=== PATIENT | male | born 1990 | race Caucasian/White ===

== ENCOUNTER 2019-10-13 11:47 | Emergency (ER) | payer SELFPAY ==
[~2019-10-13] VITALS: Ht 188 cm; Wt 82.0 kg
[2019-10-13 12:35] VITALS: BP 134/65
[2019-10-13] MEDS ORDERED: AMOX500C PO (12:42)
--- NOTE | 2019-10-13 12:43 | PHYS DOC ---
General Adult EDM: Chief Complaint: SORE THROAT HPI: HPI: Patient is a 29 year old male who presents with sore throat since Friday. Patient reports that he felt hot but did not have a thermometer to check his temperature. Patient has been taking leftover amoxicillin and 800mg ibuprofen at home. Patient reports that he has been painful to drink a lot of fluids because of the throat pain and is becoming nauseous and he said he vomited. Rating his pain a 10 out of 10. States he has been using Chloraseptic [place] also at home. (CHRIS WATTS APRN) Review of Systems: Review of Systems: HENT: Denies nasal congestion. +sore throat. [] (CHRIS WATTS HEAD SAWYER) Heart Score: Risk Factors: Risk Factors: DM, Current or recent (<one month) smoker, HTN, HLP, family history of CAD, obesity. Risk Scores: Score 0 - 3: 2.5% MACE over next 6 weeks - Discharge Home Score 4 - 6: 20.3% MACE over next 6 weeks - Admit for Clinical Observation Score 7 - 10: 72.7% MACE over next 6 weeks - Early Invasive Strategies (CHRIS WATTS APRN) Physical Exam: PE: Constitutional: Well developed, well nourished, no acute distress, non-toxic appearance. [] HENT: Normocephalic, atraumatic, bilateral external ears normal, oropharynx moist, no oral exudates, nose normal. Bilateral tonsils 2+ swelling with exudates. [] Eyes: PERRLA, EOMI, conjunctiva normal, no discharge. [] Neck: Normal range of motion, no tenderness, supple, no stridor. [] Cardiovascular:Heart rate regular rhythm, no murmur [] Lungs & Thorax: Bilateral breath sounds clear to auscultation [] Abdomen: Bowel sounds normal, soft, no tenderness, no masses, no pulsatile mas ses. [] Skin: Warm, dry, no erythema, no rash. [] Back: No tenderness, no CVA tenderness. [] Extremities: No tenderness, no cyanosis, no clubbing, ROM intact, no edema. [] Neurologic: Alert and oriented X 3, normal motor function, normal sensory function, no focal deficits noted. [] Psychologic: Affect normal, judgement normal, mood normal. [] (CHRIS WATTS APRN) EKG: EKG: [] (CHRIS WATTS APRN) Radiology/Procedures: Radiology/Procedures: [] (CHRIS WATTS APRN) Course & Med Decision Making: Course & Med Decision Making Pertinent Labs and Imaging studies reviewed. (See chart for details) Alert and oriented. Speaks in full clear sentences. Uvula midline. No trismus. Bilateral tonsils are 2+ swollen with exudates and redness. Skin pink warm and dry. Temperature in the ED is nine 99.5. Patient is given dexamethasone in the ED. He will be placed on amoxicillin and is told that he needs to finish the amoxicillin. Patient can continue taking ibuprofen and Tylenol and using the Chloraseptic spray. [] (CHRIS WATTS APRN) Dragon Disclaimer: Dragon Disclaimer: This electronic medical record was generated, in whole or in part, using a voice recognition dictation system. (CHRIS WATTS APRN) Departure Departure Impression: Primary Impression: Sore throat Disposition: 01 HOME, SELF-CARE Condition: STABLE Referrals: NO PCP (PCP) Patient Instructions: Sore Throat Additional Instructions: Follow-up with primary care provider if needed. It is important that you finish the whole antibiotic. Continue using ibuprofen and Tylenol and Chloraseptic [place]. Could also gargle with salt water. Scripts Amoxicillin (AMOXICILLIN) 500 Mg Capsule 1 CAP PO BID, #20 CAP Prov: CHRIS WATTS APRN 10/13/19 Justicifation of Admission Dx: Justifications for Admission: Justification of Admission Dx: N/A (CHRIS WATTS APRN) Attending Signature Attending Signature I have participated in the care of this patient and I have reviewed and agree with all pertinent clinical information above including history, exam, and recommendations. (ADRYAN MERRILL DO) CHRIS WATTS APRN Oct 13, 2019 12:42 ADRYAN MERRILL DO Oct 13, 2019 14:03
[2019-10-13] MEDS ORDERED: DEXAMETHASONE 4 MG TABLET PO SCH (12:45)
== END 2019-10-13 13:28 | disposition home or self-care (01) ==
LOC: ER 11:47
DX: J02.9 Acute pharyngitis, unspecified (principal); R11.2 Nausea with vomiting, unspecified
CPT/HCPCS: 87070; 87880; 99283; J8540

== ENCOUNTER 2019-10-26 22:05 | Emergency (ER) | payer SELFPAY ==
[~2019-10-26] VITALS: Ht 188 cm; Wt 81.0 kg
[~2019-10-26 22:05] MED LIST: AMOX500C PO
--- NOTE | 2019-10-26 22:33 | PHYS DOC ---
Past Medical History Past Medical History: No Pertinent History (DOM GUILLORY APRN) Past Surgical History: Other Additional Past Surgical Histo: tubes in bilat ears (DOM GUILLORY APRN) Smoking Status: Current Every Day Smoker Alcohol Use: None (DOM GUILLORY APRN) General Adult EDM: Chief Complaint: NAUSEA/VOMITING/DIARRHA HPI: HPI: Patient is a 29 year old male presents the emergency room for evaluation of nausea and vomiting for 3 days. He reports feeling generally weak and fatigued. Works outside [employer], states trying to stay hydrated. He reports 2 weeks ago was seen in this emergency room for a sore throat and treated with am oxicillin, had a negative strep test at that time. He reports those symptoms have resolved. He denies any recent cough or fever. (DOM GUILLORY APRN) Review of Systems: Review of Systems: Constitutional: Denies fever or chills. [] Eyes: Denies change in visual acuity. [] HENT: Denies nasal congestion or sore throat. [] Respiratory: Denies cough or shortness of breath. [] Cardiovascular: Denies chest pain or edema. [] GI: Denies abdominal pain, reports nausea, vomiting, denies bloody stools or diarrhea. [] : Denies dysuria. [] Musculoskeletal: Denies back pain or joint pain. [] Integument: Denies rash. [] Neurologic: Denies headache, focal weakness or sensory changes. [] Endocrine: Denies polyuria or polydipsia. [] Lymphatic: Denies swollen glands. [] Psychiatric: Denies depression or anxiety. [] (DOM GUILLORY HR SH[employer] CONSULTANT) Heart Score: Risk Factors: Risk Factors: DM, Current or recent (<one month) smoker, HTN, HLP, family history of CAD, obesity. Risk Scores: Score 0 - 3: 2.5% MACE over next 6 weeks - Discharge Home Score 4 - 6: 20.3% MACE over next 6 weeks - Admit for Clinical Observation Score 7 - 10: 72.7% MACE over next 6 weeks - Early Invasive Strategies (DOM GUILLORY APRN) Current Medications: Current Medications Medications (Trade) Dose Ordered Sig/Nellie Start Time Stop Time Status Last Admin Dose Admin Ondansetron HCl (Zofran) 4 mg 1X ONCE 10/26/19 23:00 10/26/19 23:01 Sodium Chloride 1,000 ml @ 1,000 mls/hr 1X ONCE 10/26/19 23:00 10/26/19 23:59 (DOM GUILLORY APRN) Allergies: Allergies: Allergies Coded Allergies Type Severity Reaction Last Updated Verified No Known Drug Allergies 10/13/19 No (DOM GUILLORY APRN) Physical Exam: PE: Constitutional: Well developed, well nourished, no acute distress, non-toxic appearance. [] Neck: Normal range of motion, no tenderness, supple, no stridor. [] Cardiovascular:Heart rate regular rhythm, no murmur [] Lungs & Thorax: Bilateral breath sounds clear to auscultation [] Abdomen: Bowel sounds normal, soft, no tenderness, no masses, no pulsatile masses. [] Skin: Warm, dry, no erythema, no rash. [] Extremities: No tenderness, no cyanosis, no clubbing, ROM intact, no edema. [] Neurologic: Alert and oriented X 3, normal motor function, normal sensory function, no focal deficits noted. [] Psychologic: Affect normal, judgement normal, mood normal. [] (DOM GUILLORY APRN) Current Patient Data: Labs: Laboratory Tests Test 10/26/19 22:35 White Blood Count 8.9 x10^3/uL Red Blood Count 5.32 x10^6/uL Hemoglobin 15.9 g/dL Hematocrit 44.4 % Mean Corpuscular Volume 83 fL Mean Corpuscular Hemoglobin 30 pg Mean Corpuscular Hemoglobin Concent 36 g/dL Red Cell Distribution Width 12.6 % Platelet Count 396 x10^3/uL Neutrophils (%) (Auto) 58 % Lymphocytes (%) (Auto) 28 % Monocytes (%) (Auto) 12 % Eosinophils (%) (Auto) 1 % Basophils (%) (Auto) 1 % Neutrophils # (Auto) 5.2 x10^3/uL Lymphocytes # (Auto) 2.5 x10^3/uL Monocytes # (Auto) 1.0 x10^3/uL Eosinophils # (Auto) 0.1 x10^3/uL Basophils # (Auto) 0.1 x10^3/uL Urine Collection Type Unknown Urine Color Chantel Urine Clarity Turbid Urine pH 5.5 Urine Specific [place] >=1.030 Urine Protein Negative mg/dL Urine Glucose (UA) Negative mg/dL Urine Ketones (Stick) Negative mg/dL Urine Blood Negative Urine Nitrite Negative Urine Bilirubin Small Urine Urobilinogen Dipstick 0.2 mg/dL Urine Leukocyte Esterase Negative Urine RBC 0 /HPF Urine WBC 1-4 /HPF Urine Squamous Epithelial Cells Few /LPF Urine Amorphous Sediment Present /HPF Urine Bacteria 0 /HPF Urine Mucus Marked /LPF Sodium Level 136 mmol/L Potassium Level 3.3 mmol/L Chloride Level 97 mmol/L Carbon Dioxide Level 27 mmol/L Anion Gap 12 Blood Urea Nitrogen 23 mg/dL Creatinine 1.4 mg/dL Estimated GFR (Cockcroft-Gault) 60.3 BUN/Creatinine Ratio 16 Glucose Level 96 mg/dL Calcium Level 9.6 mg/dL Total Bilirubin 0.8 mg/dL Aspartate Amino Transf (AST/SGOT) 20 U/L Alanine Aminotransferase (ALT/SGPT) 41 U/L Alkaline Phosphatase 97 U/L Creatine Kinase 72 U/L Total Protein 9.0 g/dL Albumin 4.1 g/dL Albumin/Globulin Ratio 0.8 Lipase 93 U/L Heterophil Agglutinins Negative Current Medications Medications (Trade) Dose Ordered Sig/Nellie Route PRN Reason Start Time Stop Time Status Last Admin Dose Admin Sodium Chloride 1,000 ml @ 1,000 mls/hr 1X ONCE IV 10/26/19 23:00 10/26/19 23:59 10/26/19 23:01 Ondansetron HCl (Zofran) 4 mg 1X ONCE IVP 10/26/19 23:00 10/26/19 23:01 DC 10/26/19 23:01 Vital Signs: Vital Signs Date Time Temp Pulse Resp B/P (MAP) Pulse Ox O2 Delivery O2 Flow Rate FiO2 10/26/19 22:15 98.3 90 12 130/77 (94) 98 Room Air 98.3 (DOM GUILLORY APRN) EKG: EKG: [] (DOM GUILLORY APRN) Radiology/Procedures: Radiology/Procedures: [] (DOM GUILLORY APRN) Course & Med Decision Making: Course & Med Decision Making Pertinent Labs and Imaging studies reviewed. (See chart for details) [Patient with dehydration on labs, received IV fluids, tolerating p.o. fluids. Recommend increase fluid intake, follow-up with primary care doctor in 2 to 3 days. Prescription for Zofran. Return to ER for new or worsening symptoms.] (DOM GUILLORY APRN) Kat Disclaimer: Kat Disclaimer: This electronic medical record was generated, in whole or in part, using a voice recognition dictation system. (DOM GUILLORY APRN) Departure Departure Impression: Primary Impression: Vomiting Qualified Codes: R11.2 - Nausea with vomiting, unspecified Additional Impression: Dehydration Disposition: HOME, SELF-CARE Condition: STABLE Referrals: NO PCP (PCP) Patient Instructions: Dehydration, Adult, Nausea and Vomiting Scripts Ondansetron Hcl (ZOFRAN) 4 Mg Tablet 1 TAB PO/SL Q6HRS, #20 TAB Prov: DOM GUILLORY APRN 10/26/19 Justicifation of Admission Dx: Justifications for Admission: Justification of Admission Dx: N/A (DOM GUILLORY APRN) Attending Signature Attending Signature I have participated in the care of this patient and I have reviewed and agree with all pertinent clinical information above including history, exam, and recommendations. (ADRYAN MERRILL DO) DOM GUILLORY APRN Oct 26, 2019 22:33 ADRYAN MERRILL DO Oct 26, 2019 23:23
[2019-10-26 22:42] LABS: BASO # 0.1 x10^3/uL (0.0-0.2); BASO % 1 % (0-3); EOS # 0.1 x10^3/uL (0.0-0.7); EOS % 1 % (0-3); HEMATOCRIT 44.4 % (39.0-53.0); HEMOGLOBIN 15.9 g/dL (13.0-17.5); LYMPH # 2.5 x10^3/uL (1.0-4.8); LYMPH % 28 % (24-48); MEAN CORPUSCULAR HEMOGLOBIN 30 pg (25-35); MEAN CORPUSCULAR HGB CONC 36 g/dL (31-37); MEAN CORPUSCULAR VOLUME 83 fL (79-100); MONO % 12 % (0-9); NEUT # 5.2 x10^3/uL (1.8-7.7); NEUT % 58 % (31-73); PLATELET COUNT 396 x10^3/uL (140-400); RED BLOOD COUNT 5.32 x10^6/uL (4.30-5.70); RED CELL DISTRIBUTION WIDTH 12.6 % (11.5-14.5); WHITE BLOOD COUNT 8.9 x10^3/uL (4.0-11.0)
[2019-10-26 22:45] LABS: BILIRUBIN,URINE SMALL (NEG); CLARITY,URINE TURBID; COLOR,URINE AMBER; NITRITE,URINE NEGATIVE (NEG); PH,URINE 5.5 (<5.0-8.0); PROTEIN,URINE NEGATIVE (NEG-TRACE); UROBILINOGEN,URINE 0.2 mg/dL (0.2 mg/dL)
[2019-10-26 22:49] LABS: AMORPHOUS SEDIMENT,UR PRESENT /HPF; BACTERIA,URINE 0 /HPF (0-FEW); RBC,URINE 0 /HPF (0-2); SQUAMOUS EPITHELIAL CELL,UR FEW /LPF
[2019-10-26 22:52] LABS: MONONUCLEOSIS PATIENT NEGATIVE (NEGATIVE)
[2019-10-26 22:53] LABS: CALCIUM 9.6 mg/dL (8.5-10.1); CREATININE 1.4 mg/dL (0.7-1.3); GFR 60.3; POTASSIUM 3.3 mmol/L (3.5-5.1)
[2019-10-26 23:00] LABS: ALBUMIN 4.1 g/dL (3.4-5.0); ALBUMIN/GLOBULIN RATIO 0.8 (1.0-1.7); TOTAL BILIRUBIN 0.8 mg/dL (0.2-1.0)
[2019-10-26] MEDS ORDERED: ONDANSETRON PF 4 MG/2 ML VIAL. IVP ONE (23:00)
[2019-10-26] MEDS ORDERED: IV NORMAL SALINE 1000ML BAG 1,000 ML IV ONE (23:00)
[2019-10-26] MEDS ORDERED: ONDA4TAB7 PO/SL (23:14)
[2019-10-26 23:33] VITALS: BP 127/66
== END 2019-10-26 23:22 | disposition home or self-care (01) ==
LOC: ER 22:05
DX: R11.2 Nausea with vomiting, unspecified (principal); E86.0 Dehydration; R53.83 Other fatigue; R53.1 Weakness; F17.200 Nicotine dependence, unspecified, uncomplicated; Z98.890 Other specified postprocedural states
CPT/HCPCS: 36415; 80053; 81001; 82550; 83690; 85025; 86308; 96361; 96374; 99283; J2405; J7030